=== PATIENT | female | born 1995 | race Two or more races ===

== ENCOUNTER 2018-07-26 10:36 | Emergency (ER) | payer OTHER ==
[~2018-07-26] VITALS: Ht 170.2 cm; Wt 61.2 kg
[2018-07-26 11:01] LABS: BILIRUBIN,URINE NEGATIVE (NEG); CLARITY,URINE CLEAR; COLOR,URINE YELLOW; NITRITE,URINE NEGATIVE (NEG); PH,URINE 6.5; PROTEIN,URINE 100 mg/dL (NEG-TRACE); UROBILINOGEN,URINE 0.2 mg/dL (0.2 mg/dL)
[2018-07-26 11:09] LABS: SQUAMOUS EPITHELIAL CELL,UR FEW /LPF
[2018-07-26 11:10] LABS: BACTERIA,URINE FEW /HPF (0-FEW)
--- NOTE | 2018-07-26 11:40 | PHYS DOC ---
Past Medical History Past Medical History: No Pertinent History Past Surgical History: No Surgical History Alcohol Use: None Drug Use: None Adult General Chief Complaint Chief Complaint: ABDOMINAL PAIN IN HPI HPI Patient is a 23 year old female with no significant medical history who presents today complaining of a cramping 6 out of 10 lower abdominal pain in , she is a 1 para 0, patient describes the pain as pressure when voiding. Denies any fever. Denies any vaginal bleeding, she states she's had a couple days of clear white vaginal discharge. Denies any vaginal bleeding. Review of Systems Review of Systems Constitutional: Denies fever or chills [] Eyes: Denies change in visual acuity, redness, or eye pain [] HENT: Denies nasal congestion or sore throat [] Respiratory: Denies cough or shortness of breath [] Cardiovascular: No additional information not addressed in HPI [] GI: Reports abdominal pain/pressure when voiding, denies nausea, vomiting, bloody stools or diarrhea [] : Denies dysuria or hematuria [] Musculoskeletal: Denies back pain or joint pain [] Integument: Denies rash or skin lesions [] Neurologic: Denies headache, focal weakness or sensory changes [] All other systems were reviewed and found to be within normal limits, except as documented in this note. Allergies Allergies Allergies Coded Allergies Type Severity Reaction Last Updated Verified No Known Drug Allergies 07/26/18 No Physical Exam Physical Exam Constitutional: Well developed, well nourished, no acute distress, non-toxic appearance. [] HENT: Normocephalic, atraumatic, bilateral external ears normal, oropharynx moist, no oral exudates, nose normal. [] Eyes: PERRLA, EOMI, conjunctiva normal, no discharge. [] Neck: Normal range of motion, no tenderness, supple, no stridor. [] Cardiovascular:Heart rate regular rhythm, no murmur [] Lungs & Thorax: Bilateral breath sounds clear to auscultation [] Abdomen: Bowel sounds normal, soft, slight tenderness diffusely around the pelvic region, negative psoas sign, negative obturator sign, negative Rovsing sign, no masses, no pulsatile masses. [] Pelvic exam External pelvic appears normal, cervix is closed, no CMT, no adnexal tenderness , trace amount of white discharge in the vaginal vault. Skin: Warm, dry, no erythema, no rash. [] Back: No tenderness, no CVA tenderness. [] Extremities: No tenderness, no cyanosis, no clubbing, ROM intact, no edema. [] Neurologic: Alert and oriented X 3, normal motor function, normal sensory function, no focal deficits noted. [] Psychologic: Affect normal, judgement normal, mood normal. [] Current Patient Data Vital Signs Vital Signs Date Time Temp Pulse Resp B/P (MAP) Pulse Ox O2 Delivery O2 Flow Rate FiO2 07/26/18 13:42 63 20 108/57 (74) 99 07/26/18 11:01 98.4 Room Air 98.4 Lab Values Laboratory Tests Test 07/26/18 10:49 07/26/18 10:52 07/26/18 12:40 Urine Collection Type Unknown Urine Color Yellow Urine Clarity Clear Urine pH 6.5 Urine Specific [place] 1.010 Urine Protein 100 mg/dL (NEG-TRACE) Urine Glucose (UA) Negative mg/dL (NEG) Urine Ketones (Stick) Negative mg/dL (NEG) Urine Blood Negative (NEG) Urine Nitrite Negative (NEG) Urine Bilirubin Negative (NEG) Urine Urobilinogen Dipstick 0.2 mg/dL (0.2 mg/dL) Urine Leukocyte Esterase Negative (NEG) Urine RBC 1-2 /HPF (0-2) Urine WBC 1-4 /HPF (0-4) Urine Squamous Epithelial Cells Few /LPF Urine Bacteria Few /HPF (0-FEW) Urine Mucus Mod /LPF POC Urine HCG, Qualitative Hcg positive (Negative) White Blood Count 19.5 x10^3/uL (4.0-11.0) H Red Blood Count 4.65 x10^6/uL (3.50-5.40) Hemoglobin 13.5 g/dL (12.0-15.5) Hematocrit 39.8 % (36.0-47.0) Mean Corpuscular Volume 86 fL (79-100) Mean Corpuscular Hemoglobin 29 pg (25-35) Mean Corpuscular Hemoglobin Concent 34 g/dL (31-37) Red Cell Distribution Width 13.2 % (11.5-14.5) Platelet Count 353 x10^3/uL (140-400) Neutrophils (%) (Auto) 86 % (31-73) H Lymphocytes (%) (Auto) 9 % (24-48) L Monocytes (%) (Auto) 5 % (0-9) Eosinophils (%) (Auto) 0 % (0-3) Basophils (%) (Auto) 0 % (0-3) Neutrophils # (Auto) 16.7 x10^3uL (1.8-7.7) H Lymphocytes # (Auto) 1.8 x10^3/uL (1.0-4.8) Monocytes # (Auto) 1.0 x10^3/uL (0.0-1.1) Eosinophils # (Auto) 0.0 x10^3/uL (0.0-0.7) Basophils # (Auto) 0.0 x10^3/uL (0.0-0.2) Segmented Neutrophils % 88 % (35-66) H Band Neutrophils % 3 % (0-9) Lymphocytes % 6 % (24-48) L Monocytes % 3 % (0-10) Platelet Estimate Adequate (ADEQUATE) Maternal Serum HCG Beta Subunit 10232 mIU/mL (0-5) H Sodium Level 140 mmol/L (136-145) Potassium Level 3.6 mmol/L (3.5-5.1) Chloride Level 103 mmol/L (98-107) Carbon Dioxide Level 23 mmol/L (21-32) Anion Gap 14 (6-14) Blood Urea Nitrogen 8 mg/dL (7-20) Creatinine 0.5 mg/dL (0.6-1.0) L Estimated GFR (Cockcroft-Gault) 152.9 BUN/Creatinine Ratio 16 (6-20) Glucose Level 78 mg/dL (70-99) Calcium Level 9.5 mg/dL (8.5-10.1) Total Bilirubin 0.4 mg/dL (0.2-1.0) Aspartate Amino Transferase (AST) 21 U/L (15-37) Alanine Aminotransferase (ALT) 29 U/L (14-59) Alkaline Phosphatase 60 U/L (46-116) Total Protein 8.0 g/dL (6.4-8.2) Albumin 3.8 g/dL (3.4-5.0) Albumin/Globulin Ratio 0.9 (1.0-1.7) L Lipase 95 U/L (73-393) Laboratory Tests 07/26/18 12:40 Laboratory Tests 07/26/18 12:40 Microbiology 07/26/18 Wet Prep - Final, Complete EKG EKG [] Radiology/Procedures Radiology/Procedures []PROCEDURE: OB < 14 WKS Examination: Obstetric ultrasound less than 14 weeks HISTORY: History of abdominal pain Comparison none available. FINDINGS: The uterus measures 12.5 x 10.2 x 8.1 cm. The cervical length measures 3.5 cm. The right ovary measures 3.7 x 1.9 x 3.0 cm. The left ovary measures 4.0 x 1.9 x 2.1 cm Single living intrauterine identified with heart rate of 143 bpm. Placenta is located in the fundus. Amniotic fluid is normal. The crown-rump length measures 7.7 cm corresponding to 13 weeks and 5 days. The biparietal diameter measures 2.5 cm corresponding to 14 weeks and 3 days. Head circumference measures 9.9 cm corresponding to 14 weeks and 5 days. The crown-rump length measures 7.6 cm corresponding to 13 weeks and 5 days. Given LMP 04/17/2018. Clinical age is 14 weeks and 2 days. Ultrasound age is 14 weeks and 2 days with expected date of delivery by ultrasound 01/22/2019. IMPRESSION: 1. Single living intrauterine with heart rate of 143 bpm. Electronically signed by: Willem Muniz MD (07/26/2018 1:24 PM) [facility] DICTATED and SIGNED BY: WILLEM MUNIZ MD DATE: 07/26/18 1320 Course & Med Decision Making Course & Med Decision Making Pertinent Labs and Imaging studies reviewed. (See chart for details) This is a 23-year-old female patient presenting to the ED today with abdominal cramping/pressure when voiding, she is a 1 para 0 currently 14 weeks per her statement. Vitals on arrival to the ED temperature 98.4 heart rate 72 respiration 20 blood pressure 125/60 O2 sats 98% on room air. Patient was refusing care. She wanted to be discharged before anything was done. Informed patient she needs to leave she has to sign out AMA. She accepted to stay. Positive urine hCG, beta-hCG 83,626, urine analysis is negative for infection, wet prep negative for infection. CBC with a WBC of 19.5 and a left shift. Consulted with Dr. Walden who requested we consult patient's SALES [employer] ANALYST and see if she wants us to do MRI of the abdomen to rule out appendicitis. Called patient's SALES FORECAST ANALYST at [facility] Dr.Valerie Miner, she never called up back for over [address]. [address] Angelic De La Fuente SALES [employer] ANALYST, she requested we put patient on antibiotics and D/c her to home Patient was discharged on cephalexin Dragon Disclaimer Dragon Disclaimer This electronic medical record was generated, in whole or in part, using a voice recognition dictation system. Departure Departure Impression: Primary Impression: Abdominal pain in Disposition: HOME, SELF-CARE Condition: STABLE Referrals: NO PCP (PCP) ADRIAN BARRON MD follow-up with your SALES FORECAST ANALYST on Saturday Patient Instructions: Abdominal Pain During , [id number] Additional Instructions: You were evaluated for abdominal pain in , we put you on antibiotics, take them as prescribed. Come back to the ED at any point symptoms worsen. Scripts Cephalexin (CEPHALEXIN) 500 Mg Tablet 1 TAB PO BID, #14 TAB Prov: SILVINO GOMEZ APRN 07/26/18 Problem Qualifiers Primary Impression: Abdominal pain in Trimester: second trimester Qualified Codes: O26.892 - Other specified related conditions, second trimester; R10.9 - Unspecified abdominal pain SILVINO GOMEZ APRN Jul 26, 2018 11:40
[2018-07-26 12:52] LABS: BASO % 0 % (0-3); EOS % 0 % (0-3); HEMATOCRIT 39.8 % (36.0-47.0); HEMOGLOBIN 13.5 g/dL (12.0-15.5); LYMPH # 1.8 x10^3/uL (1.0-4.8); LYMPH % 9 % (24-48); MEAN CORPUSCULAR HEMOGLOBIN 29 pg (25-35); MEAN CORPUSCULAR HGB CONC 34 g/dL (31-37); MEAN CORPUSCULAR VOLUME 86 fL (79-100); MONO % 5 % (0-9); NEUT # 16.7 x10^3uL (1.8-7.7); NEUT % 86 % (31-73); PLATELET COUNT 353 x10^3/uL (140-400); RED BLOOD COUNT 4.65 x10^6/uL (3.50-5.40); RED CELL DISTRIBUTION WIDTH 13.2 % (11.5-14.5); WHITE BLOOD COUNT 19.5 x10^3/uL (4.0-11.0)
[2018-07-26 13:01] LABS: CALCIUM 9.5 mg/dL (8.5-10.1); CREATININE 0.5 mg/dL (0.6-1.0); GFR 152.9; POTASSIUM 3.6 mmol/L (3.5-5.1)
[2018-07-26 13:07] LABS: ALBUMIN 3.8 g/dL (3.4-5.0); ALBUMIN/GLOBULIN RATIO 0.9 (1.0-1.7); TOTAL BILIRUBIN 0.4 mg/dL (0.2-1.0)
--- NOTE | 2018-07-26 13:28 | RAD ---
Examination: Obstetric ultrasound less than 14 weeks HISTORY: History of abdominal pain Comparison none available. FINDINGS: The uterus measures 12.5 x 10.2 x 8.1 cm. The cervical length measures 3.5 cm. The right ovary measures 3.7 x 1.9 x 3.0 cm. The left ovary measures 4.0 x 1.9 x 2.1 cm Single living intrauterine identified with heart rate of 143 bpm. Placenta is located in the fundus. Amniotic fluid is normal. The crown-rump length measures 7.7 cm corresponding to 13 weeks and 5 days. The biparietal diameter measures 2.5 cm corresponding to 14 weeks and 3 days. Head circumference measures 9.9 cm corresponding to 14 weeks and 5 days. The crown-rump length measures 7.6 cm corresponding to 13 weeks and 5 days. Given LMP 04/17/2018. Clinical age is 14 weeks and 2 days. Ultrasound age is 14 weeks and 2 days with expected date of delivery by ultrasound 01/22/2019. IMPRESSION: 1. Single living intrauterine with heart rate of 143 bpm. Electronically signed by: Willem Muniz MD (07/26/2018 1:24 PM) [facility]
[2018-07-26 13:42] VITALS: BP 108/57
[2018-07-26 14:38] LABS: % BANDS 3 % (0-9); % LYMPHS 6 % (24-48); % MONOS 3 % (0-10); % SEGS 88 % (35-66); PLT ESTIMATE ADEQUATE (ADEQUATE)
[2018-07-26] MEDS ORDERED: CEPH500T PO (15:19)
[2018-07-28 15:26] LABS: GC PROBE Negative (Negative)
== END 2018-07-26 15:43 | disposition home or self-care (01) ==
LOC: ER 10:36
DX: O26.892 Other specified pregnancy related conditions, second trimester (principal); R10.30 Lower abdominal pain, unspecified; Z3A.14 14 weeks gestation of pregnancy
CPT/HCPCS: 36415; 76801; 80053; 81001; 81025; 83690; 84702; 85007; 85025; 87491; 87591; 99285; Q0111